=== PATIENT | female | born 1955 | race Caucasian/White ===

== ENCOUNTER 2023-07-15 12:50 | Outpatient (CLI) | payer MEDICARE, OTHER ==
[~2023-07-15 12:50] MED LIST: ASTELIN NASAL S34 ML NS; CALCIUM 600MG+D1 TAB PO; CALCIUM CITRAT200 M2 PO; CLARITIN REDITA10 MG PO; ETHAMBUTOL HYD400 MG PO; LEVAQUIN 5500 MG/TA1 PO; MIRALAX 255 GM255 GM PO; NEXIUM 40MG40 MG PO; PRILOSEC 20MG20 MG PO; RIFADIN300 MG; SINGULAIR 110 MG/TAB PO; SYNTHROID0.075 MG/T PO; SYNTHROID0.112 MG/T PO; TYLENOL 500MG500 MG PO; VITAMIN D32000 IU PO; ZITHROMAX TRI-500 MG PO; ZYRTEC10MGSGL PO
[2023-07-15 13:11] VITALS: BP 125/80; PULSE 60; TEMP 97.8
[2023-07-15] MEDS ORDERED: LYRICA 25MG CAP25 MG PO (13:11)
[2023-07-15] MEDS ORDERED: B-121000 MCG PO (13:11)
[2023-07-15] MEDS ORDERED: Denosumab 60 MG/ML SYRINGE SQ ONE (13:15)
== END 2023-07-15 14:00 ==
LOC: EUO 12:50
DX: M81.0 Age-related osteoporosis without current pathological fracture (principal)
CPT/HCPCS: J0897